=== PATIENT | female | born 1980 | race Caucasian/White ===

== ENCOUNTER → 2020-05-18 | Outpatient (CLI) | payer OTHER ==
--- NOTE | 2020-05-19 10:35 | MM ---
Reason for exam: screening (asymptomatic). Baseline mammogram. History: Family history of breast cancer in maternal grandmother. Retro-pectoral saline implants in both breasts, 2006. Physical Findings: Nurse did not find any significant physical abnormalities on exam. MG Screening Mammo Implant/CAD Bilateral CC, MLO, and ID view(s) were taken. The breast tissue is heterogeneously dense. This may lower the sensitivity of mammography. Bilateral retropectoral saline implants. 10 o'clock nodularity left breast. Suspect additional lower outer quadrant nodularity on the left. These results were verbally communicated with the patient and result sheet given to the patient on 05/18/20. ASSESSMENT: Incomplete: need additional imaging evaluation, BI-RAD 0 RECOMMENDATION: Special view mammogram of the left breast. (3D)
--- NOTE | 2020-05-19 10:38 | MM ---
Reason for exam: additional evaluation requested from abnormal screening. History: Family history of breast cancer in maternal grandmother. Retro-pectoral saline implants in both breasts, 2006. Physical Findings: Nurse did not find any significant physical abnormalities on exam. MG Work Up Gagandeep W/Imp W/CAD L CCRM and LM view(s) were taken of the left breast. The breast tissue is heterogeneously dense. This may lower the sensitivity of mammography. The left CCRM view shows three circumscribed nodules measuring up to 6mm likely located on the superior half as no definite nodule seen inferiorly on the true lateral. These results were verbally communicated with the patient and result sheet given to the patient on 05/18/20. ASSESSMENT: Incomplete: need additional imaging evaluation, BI-RAD 0 RECOMMENDATION: Ultrasound of the left breast.
--- NOTE | 2020-05-19 10:40 | USB ---
Reason for exam: additional evaluation requested from abnormal screening. History: Family history of breast cancer in maternal grandmother. Retro-pectoral saline implants in both breasts, 2006. US Breast Workup LT Left complete breast ultrasound includes all four quadrants, the retroareolar region and axilla. Finding demonstrates a 0.6 x 0.5 x 0.5cm oval, cystic, benign lesion at 12 o'clock, a 0.4 x 0.4 x 0.3cm oval, cystic, benign lesion at 1 o'clock, a 0.9 x 0.7 x 0.4cm oval, cystic, benign cluster at 2 o'clock and a 0.9 x 0.8 x 0.6cm benign lymph node at the axilla. No ultrasound correlate for the medial nodule on mammogram. 6 month follow up mammogram. These results were verbally communicated with the patient and result sheet given to the patient on 05/18/20. ASSESSMENT: Probably benign, BI-RAD 3 RECOMMENDATION: Follow-up diagnostic mammogram of the left breast in 6 months.
== END | disposition home or self-care (01) ==
LOC: RADMAMWWP 14:12
PROVIDERS: ATTEND Obstetrics & Gynecology
DX: Z12.31 Encounter for screening mammogram for malignant neoplasm of breast (principal); R92.8 Other abnormal and inconclusive findings on diagnostic imaging of breast; Z80.3 Family history of malignant neoplasm of breast
CPT/HCPCS: 77066; 77067

== ENCOUNTER → 2020-11-26 | Outpatient (CLI) | payer OTHER ==
--- NOTE | 2020-11-26 11:47 | MM ---
Reason for exam: follow-up at short interval from prior study. Last mammogram was performed 6 months ago. History: Family history of breast cancer in maternal grandmother. Retro-pectoral saline implants in both breasts, 2006. Physical Findings: Nurse did not find any significant physical abnormalities on exam. MG Diag Mamm Implant LT w CAD CC, MLO, XCCL, and ID view(s) were taken of the left breast. Prior study comparison: May 18, 2020, left breast MG work up kody w/imp w/CAD L. May 18, 2020, bilateral MG screening mammo implant/CAD. The breast tissue is heterogeneously dense. This may lower the sensitivity of mammography. These results were verbally communicated with the patient and result sheet given to the patient on 11/26/20. ASSESSMENT: Benign, BI-RAD 2 RECOMMENDATION: Follow-up diagnostic mammogram of both breasts in 6 months. Back on schedule.
== END | disposition home or self-care (01) ==
LOC: RADMAMWWP 10:05
PROVIDERS: ATTEND Obstetrics & Gynecology
DX: R92.8 Other abnormal and inconclusive findings on diagnostic imaging of breast (principal); Z80.3 Family history of malignant neoplasm of breast
CPT/HCPCS: 77065

== ENCOUNTER → 2021-07-14 | Outpatient (CLI) | payer OTHER ==
--- NOTE | 2021-07-14 14:33 | MM ---
Reason for exam: additional evaluation requested from prior study. Last mammogram was performed 8 months ago. History: Family history of breast cancer in maternal grandmother. Retro-pectoral saline implants in both breasts, 2006. Physical Findings: Nurse did not find any significant physical abnormalities on exam. MG 3D Diag Mammo Imp W/Cad ROB Bilateral CC, MLO, and ID view(s) were taken. Prior study comparison: November 26, 2020, left breast MG diag mamm implant LT w CAD. May 18, 2020, left breast MG work up kody w/imp w/CAD L. The breast tissue is heterogeneously dense. This may lower the sensitivity of mammography. There is chronic nodularity in the left breast, stable. No significant new findings when compared with previous films. These results were verbally communicated with the patient and result sheet given to the patient on 07/14/21. ASSESSMENT: Benign, BI-RAD 2 RECOMMENDATION: Routine screening mammogram of both breasts in 1 year.
== END | disposition home or self-care (01) ==
LOC: RADMAMWWP 12:44
PROVIDERS: ATTEND Obstetrics & Gynecology
DX: R92.8 Other abnormal and inconclusive findings on diagnostic imaging of breast (principal); R92.2 Inconclusive mammogram; Z80.3 Family history of malignant neoplasm of breast
CPT/HCPCS: 77062; 77066

== ENCOUNTER → 2022-11-01 | Outpatient (CLI) | payer BC ==
--- NOTE | 2022-11-02 10:49 | MM ---
Reason for Exam: Hx of breast augmentation, asymptomatic. Last mammogram was performed 1 year(s) and 4 month(s) ago. Patient History: Menarche at age 14. First Full-Term at age 24. Premenopausal. 2006, Bilateral Implants. Maternal grandmother had breast cancer. Maternal aunt had breast cancer at or over age 50. Maternal grandmother had ovarian cancer at or over age 50. Maternal aunt had ovarian cancer under age 50. Maternal aunt had ovarian cancer under age 50. Risk Values: Sherrie 5 year model risk: 0.5%. NCI Lifetime model risk: 8.1%. Prior Study Comparison: 05/18/2020 Bilateral Screening Mammogram, [facility]. 05/18/2020 Left Diagnostic Mammogram, [facility]. 11/26/2020 Left Diagnostic Mammogram, [facility]. 07/14/2021 Bilateral Diagnostic Mammogram, [facility]. Tissue Density: The breast tissue is heterogeneously dense. This may lower the sensitivity of mammography. Findings: Analyzed By CAD. Stable a few tiny circumscribed round masses on background dense tissue bilaterally. There is no suspicious new group of microcalcifications or new suspicious or enlarging mass in either breast.Stable a few tiny circumscribed round masses on background dense tissue bilaterally. Bilateral subpectoral breast implants are redemonstrated. There is no suspicious new group of microcalcifications or new suspicious or enlarging mass in either breast. Overall Assessment: Negative, BI-RAD 1 Management: Screening Mammogram of both breasts in 1 year. A clinical breast exam by your physician is recommended on an annual basis and results should be correlated with mammographic findings. Electronically signed and approved by: Vince Garg M.D.
== END | disposition home or self-care (01) ==
LOC: RADMAMWWP 10:12
PROVIDERS: ATTEND Obstetrics & Gynecology
DX: Z12.31 Encounter for screening mammogram for malignant neoplasm of breast (principal); Z80.3 Family history of malignant neoplasm of breast; Z98.82 Breast implant status
CPT/HCPCS: 77063; 77067

== ENCOUNTER → 2023-11-03 | Outpatient (CLI) | payer BC ==
--- NOTE | 2023-11-06 12:30 | MM ---
Reason for Exam: Hx of breast augmentation, asymptomatic. Last screening mammogram was performed 12 month(s) ago. Patient History: Menarche at age 14. First Full-Term at age 24. Premenopausal. 2006, Bilateral Implants. Maternal grandmother had breast cancer. Maternal aunt had breast cancer at or over age 50. Maternal grandmother had ovarian cancer at or over age 50. Maternal aunt had ovarian cancer under age 50. Maternal aunt had ovarian cancer under age 50. Maternal cousin had breast cancer, age 48. Risk Values: Sherrie 5 year model risk: 0.6%. NCI Lifetime model risk: 8.0%. Prior Study Comparison: 11/26/2020 Left Diagnostic Mammogram, [facility]. 07/14/2021 Bilateral Diagnostic Mammogram, [facility]. 11/01/2022 Bilateral MG 3D screen mammo imp/cad., [facility]. Tissue Density: The breasts are heterogeneously dense, which may obscure small masses. Findings: Analyzed By CAD. There is no suspicious group of microcalcifications or new suspicious mass in either breast. Benign-appearing calcifications. Nodular density in the inner lower margin left breast. Overall Assessment: Incomplete: need additional imaging evaluation, BI-RAD 0 Management: Diagnostic Mammogram of the left breast. . Patient should continue monthly self-breast exams. A clinical breast exam by your physician is recommended on an annual basis. This exam should not preclude additional follow-up of suspicious palpable abnormalities. Note on Sherrie scores and lifetime risk: 1. A Sherrie score greater than 3% is considered moderate risk. If this is the case, consider specialist referral to assess eligibility for a risk reducing agent. 2. If overall lifetime risk for the development of breast cancer is 20% or higher, the patient may qualify for future screening with alternating mammogram and breast MRI. Electronically signed and approved by: Miguel Quevedo M.D. Radiologis
== END | disposition home or self-care (01) ==
LOC: RADMAMWWP 12:08
PROVIDERS: ATTEND Obstetrics & Gynecology
DX: Z12.31 Encounter for screening mammogram for malignant neoplasm of breast (principal); Z80.3 Family history of malignant neoplasm of breast
CPT/HCPCS: 77063; 77067

== ENCOUNTER → 2023-11-09 | Outpatient (CLI) | payer BC ==
--- NOTE | 2023-11-09 10:43 | MM ---
Reason for Exam: Additional evaluation requested from abnormal screening. Last screening mammogram was performed less than 1 month ago. Patient History: Menarche at age 14. First Full-Term at age 24. Premenopausal. 2006, Bilateral Implants. Maternal grandmother had breast cancer. Maternal aunt had breast cancer at or over age 50. Maternal grandmother had ovarian cancer at or over age 50. Maternal aunt had ovarian cancer under age 50. Maternal aunt had ovarian cancer under age 50. Maternal cousin had breast cancer, age 48. Risk Values: Sherrie 5 year model risk: 0.6%. NCI Lifetime model risk: 8.0%. Prior Study Comparison: 07/14/2021 Bilateral Diagnostic Mammogram, [facility]. 11/01/2022 Bilateral MG 3D screen mammo imp/cad., [facility]. 11/03/2023 Bilateral MG 3D screen mammo imp/cad., [facility]. Tissue Density: Left: The breasts are heterogeneously dense, which may obscure small masses. Findings: Analyzed By CAD. Well-circumscribed nodule 9:00 position left breast 3.5 cm from the nipple measuring 6 mm. Ultrasound recommended. Overall Assessment: Incomplete: need additional imaging evaluation, BI-RAD 0 Management: Diagnostic Breast Ultrasound of the left breast. . Results were given to the patient verbally at the time of exam. Patient should continue monthly self-breast exams. A clinical breast exam by your physician is recommended on an annual basis. This exam should not preclude additional follow-up of suspicious palpable abnormalities. Note on Sherrie scores and lifetime risk: 1. A Sherrie score greater than 3% is considered moderate risk. If this is the case, consider specialist referral to assess eligibility for a risk reducing agent. 2. If overall lifetime risk for the development of breast cancer is 20% or higher, the patient may qualify for future screening with alternating mammogram and breast MRI. Electronically signed and approved by: Masoud De Leon M.D. Radiologis
--- NOTE | 2023-11-09 11:08 | USB ---
Reason for Exam: Additional evaluation requested from abnormal screening. Patient History: Menarche at age 14. First Full-Term at age 24. Premenopausal. 2006, Bilateral Implants. Maternal grandmother had breast cancer. Maternal aunt had breast cancer at or over age 50. Maternal grandmother had ovarian cancer at or over age 50. Maternal aunt had ovarian cancer under age 50. Maternal aunt had ovarian cancer under age 50. Maternal cousin had breast cancer, age 48. Risk Values: Sherrie 5 year model risk: 0.6%. NCI Lifetime model risk: 8.0%. Technique: Method: Targeted. Prior Study Comparison: 07/14/2021 Bilateral Diagnostic Mammogram, [facility]. 11/01/2022 Bilateral MG 3D screen mammo imp/cad., [facility]. 11/03/2023 Bilateral MG 3D screen mammo imp/cad., [facility]. Findings: The lower section of the breast of the left breast, the axilla of the left breast and the retroareolar of the left breast were scanned. Following a lesser described cystic lesion noted at the left 2 10:00 position 2 cm from the nipple measuring 8 x 4 mm. No solid masses seen. Overall Assessment: Benign, BI-RAD 2 Management: Screening Mammogram of both breasts in 1 year. A clinical breast exam by your physician is recommended on an annual basis and results should be correlated with mammographic findings. This exam should not preclude additional follow-up of suspicious palpable abnormalities. Results were given to the patient verbally at the time of exam. Electronically signed and approved by: Masoud De Leon M.D. Radiologis
== END | disposition home or self-care (01) ==
LOC: RADMAMWWP 10:01
PROVIDERS: ATTEND Obstetrics & Gynecology
DX: R92.8 Other abnormal and inconclusive findings on diagnostic imaging of breast (principal); R92.332 Mammographic heterogeneous density, left breast; Z80.3 Family history of malignant neoplasm of breast
CPT/HCPCS: 77061; 77065

== ENCOUNTER → 2024-12-04 | Outpatient (CLI) | payer BC ==
--- NOTE | 2024-12-04 10:31 | MM ---
Reason for Exam: Screening (asymptomatic). Last mammogram was performed 1 year(s) and 1 month(s) ago. Patient History: Menarche at age 14. First Full-Term at age 24. Premenopausal. 2006, Bilateral Implants. Maternal grandmother had breast cancer. Maternal aunt had breast cancer at or over age 50. Maternal grandmother had ovarian cancer at or over age 50. Maternal aunt had ovarian cancer under age 50. Maternal aunt had ovarian cancer under age 50. Maternal cousin had breast cancer, age 48. Risk Values: Sherrie 5 year model risk: 0.6%. NCI Lifetime model risk: 8.0%. Prior Study Comparison: 11/01/2022 Bilateral MG 3D screen mammo imp/cad., [facility]. 11/03/2023 Bilateral MG 3D screen mammo imp/cad., [facility]. 11/09/2023 Left MG 3D work up w/cad w/imp , [facility]. Tissue Density: There are scattered areas of fibroglandular density. Findings: Analyzed By CAD. Right breast: There is no suspicious group of microcalcifications or new suspicious mass. Left breast: Asymmetry upper aspect on implant displaced MLO view 4.9 cm the nipple measuring 3 mm. Overall Assessment: Incomplete: need additional imaging evaluation, BI-RAD 0 Management: Diagnostic Mammogram of the left breast. [facility] will attempt to contact patient to return for supplemental views and ultrasound if indicated. Patient should continue monthly self-breast exams. A clinical breast exam by your physician is recommended on an annual basis. This exam should not preclude additional follow-up of suspicious palpable abnormalities. Note on Sherrie scores and lifetime risk: 1. A Sherrie score greater than 3% is considered moderate risk. If this is the case, consider specialist referral to assess eligibility for a risk reducing agent. 2. If overall lifetime risk for the development of breast cancer is 20% or higher, the patient may qualify for future screening with alternating mammogram and breast MRI. [facility], , 12/04/2024 10:29 AM. Electronically signed and approved by: Jeremías Atwood DO
== END | disposition home or self-care (01) ==
LOC: RADMAMWWP 08:57
PROVIDERS: ATTEND Obstetrics & Gynecology
DX: Z12.31 Encounter for screening mammogram for malignant neoplasm of breast (principal); R92.323 Mammographic fibroglandular density, bilateral breasts; Z80.3 Family history of malignant neoplasm of breast
CPT/HCPCS: 77063; 77067

== ENCOUNTER → 2024-12-06 | Outpatient (CLI) | payer BC ==
--- NOTE | 2024-12-06 08:39 | MM ---
Reason for Exam: Additional evaluation requested from abnormal screening. Last screening mammogram was performed less than 1 month ago. Patient History: Menarche at age 14. First Full-Term at age 24. Premenopausal. 2006, Bilateral Implants. Maternal grandmother had breast cancer. Maternal aunt had breast cancer at or over age 50. Maternal grandmother had ovarian cancer at or over age 50. Maternal aunt had ovarian cancer under age 50. Maternal aunt had ovarian cancer under age 50. Maternal cousin had breast cancer, age 48. Risk Values: Sherrie 5 year model risk: 0.6%. NCI Lifetime model risk: 8.0%. Prior Study Comparison: 11/03/2023 Bilateral MG 3D screen mammo imp/cad., [facility]. 11/09/2023 Left MG 3D work up w/cad w/imp LT, [facility]. 12/04/2024 Bilateral MG 3D screen mammo imp/cad., [facility]. Tissue Density: Left: The breasts are heterogeneously dense, which may obscure small masses. Findings: Analyzed By CAD. Focal asymmetry felt to persistent in the upper outer quadrant 5 to 6 cm from the nipple measuring 5 mm on left MLO aerated view. Precautionary ultrasound recommended of this region. Overall Assessment: Incomplete: need additional imaging evaluation, BI-RAD 0 Management: Diagnostic Breast Ultrasound of the left breast. Results were given to the patient verbally at the time of exam. Patient should continue monthly self-breast exams. A clinical breast exam by your physician is recommended on an annual basis. This exam should not preclude additional follow-up of suspicious palpable abnormalities. Note on Sherrie scores and lifetime risk: 1. A Sherrie score greater than 3% is considered moderate risk. If this is the case, consider specialist referral to assess eligibility for a risk reducing agent. 2. If overall lifetime risk for the development of breast cancer is 20% or higher, the patient may qualify for future screening with alternating mammogram and breast MRI. [facility], , 12/06/2024 8:36 AM. Electronically signed and approved by: Jeremías Atwood DO
--- NOTE | 2024-12-06 09:17 | USB ---
Reason for Exam: Additional evaluation requested from prior study. Patient History: Menarche at age 14. First Full-Term at age 24. Premenopausal. 2006, Bilateral Implants. Maternal grandmother had breast cancer. Maternal aunt had breast cancer at or over age 50. Maternal grandmother had ovarian cancer at or over age 50. Maternal aunt had ovarian cancer under age 50. Maternal aunt had ovarian cancer under age 50. Maternal cousin had breast cancer, age 48. Risk Values: Sherrie 5 year model risk: 0.6%. NCI Lifetime model risk: 8.0%. Technique: Method: Targeted. Prior Study Comparison: 11/03/2023 Bilateral MG 3D screen mammo imp/cad., [facility]. 11/09/2023 Left MG 3D work up w/cad w/imp LT, [facility]. 12/04/2024 Bilateral MG 3D screen mammo imp/cad., [facility]. Findings: The upper outer quadrant of the left breast, the axilla of the left breast and the retroareolar of the left breast were scanned. Technique utilized:US breast workup limited LT Image; Ultrasound imaging of: Upper-outer quadrant, retroareolar region and axilla. No evidence for organizing fluid collection or mass. Cyst seen on prior ultrasound 11/09/2023 and 05/18/2029 definitively visualized. Negative left axilla. Overall Assessment: Probably benign, BI-RAD 3 Management: Diagnostic Mammogram of the left breast in 6 months. Precautionary diagnostic left mammogram in 6 months for finding on implant displaced MLO view upper aspect. A clinical breast exam by your physician is recommended on an annual basis and results should be correlated with mammographic findings. This exam should not preclude additional follow-up of suspicious palpable abnormalities. Results were given to the patient verbally at the time of exam. [facility], , 12/06/2024 8:59 AM. Electronically signed and approved by: Jereímas Atwood DO
== END | disposition home or self-care (01) ==
LOC: RADMAMWWP 07:52
PROVIDERS: ATTEND Obstetrics & Gynecology
DX: R92.8 Other abnormal and inconclusive findings on diagnostic imaging of breast (principal); R92.332 Mammographic heterogeneous density, left breast; Z80.3 Family history of malignant neoplasm of breast; Z78.0 Asymptomatic menopausal state
CPT/HCPCS: 77061; 77065